=== PATIENT | female | born 1975 | race Two or more races ===

== ENCOUNTER 2023-09-09 20:26 | Emergency (ER) | payer OTHER | END 2023-09-09 21:17 | disposition left against medical advice (07) | LOC: ER 20:26 | DX: S09.8XXA Other specified injuries of head, initial encounter (principal); Z53.21 Procedure and treatment not carried out due to patient leaving prior to being seen by health care provider; W01.0XXA Fall on same level from slipping, tripping and stumbling without subsequent striking against object, initial encounter; Y93.89 Activity, other specified; Y92.89 Other specified places as the place of occurrence of the external cause; Y99.8 Other external cause status ==